=== PATIENT | female | born 1960 | race Caucasian/White ===

== ENCOUNTER → 2017-10-05 13:28 | Outpatient (CLI) | payer OTHER, SELFPAY ==
[2017-10-05 14:34] LABS: Amphetamine Urine VISTA NEGATIVE (<1000 ng/mL); Barbiturate Urine VISTA NEGATIVE (< 200 ng/mL); Benzodiazepine Urine VISTA NEGATIVE (< 200 ng/mL); Cocaine Urine VISTA NEGATIVE (< 300 ng/mL); Ecstacy Urine VISTA NEGATIVE (< 500 ng/mL); Methadone Urine VISTA NEGATIVE (< 300 ng/mL); PCP Urine VISTA NEGATIVE (< 25 ng/mL); THC Urine VISTA NEGATIVE (< 50 ng/mL); Vista UDS pH Range 7
== END ==
PROVIDERS: Family Provider Family Medicine; PCP Family Medicine; Visit Provider Anesthesiology Pain Medicine
DX: F11.20 Opioid dependence, uncomplicated (principal)
CPT/HCPCS: 80307

== ENCOUNTER → 2018-04-18 14:27 | Outpatient (CLI) | payer OTHER, SELFPAY ==
--- NOTE | 2018-04-18 14:35 | RAD_ITS ---
HISTORY: NECK PAIN COMPARISON: 09/28/2015 FINDINGS: XR Spine Cervical 3 Views: Mild straightening of the lower cervical spine. Cervical vertebral normal in height. No fracture or acute disease. C5-6 mild disc space narrowing accompanied by anterior endplate spurring. The posterior elements appear intact. No spondylolisthesis. C3-4 hypertrophic facet joint arthritis on the right. The C1-C2 relationship appears normal. RAD/Cerv Spine 2 or 3 Views IMPRESSION: 1. No fracture or acute osseous abnormality. 2. C5-6 degenerative disc disease and spondylosis and mid cervical facet joint arthritis. at 0119 Reported and signed by: Nathan Dickerson MD Electronically Signed: Nathan Dickerson, at 1:18 EST Tel , Service support ,
== END ==
PROVIDERS: Family Provider Family Medicine; PCP Family Medicine; Referring Provider Anesthesiology Pain Medicine; Visit Provider Anesthesiology Pain Medicine
DX: M54.2 Cervicalgia (principal)
CPT/HCPCS: 72040

== ENCOUNTER 2019-03-01 08:08 | Outpatient (RCR) | payer OTHER, SELFPAY ==
--- NOTE | 2019-03-01 11:46 | HP.OTFCE.D ---
FCE D/C Summary - Discharge DARIAN FONSECA was seen for a one time visit for an FCE on 03/01/19 and is discharged.
--- NOTE | 2019-03-01 11:46 | HP.FCE ---
HP OT Functional Capacity Eval Date of Evaluation: 03/01/19 - Task Lift Floor (Occasional 1-33% of Day): 35 lbs Floor (Frequent 34-66% of Day): 20 lbs Floor (Constant 67-100% of Day): 8 lbs Floor PDL: Light-Medium Knee (Occasional 1-33% of Day): 30 lbs Knee (Frequent 34-66% of Day): 20 lbs Knee (Constant 67-100% of Day): 8 lbs Knee PDL: Light-Medium Waist (Occasional 1-33% of Day): 25 lbs Waist (Frequent 34-66% of Day): 15 lbs Waist (Constant 67-100% of Day): negligible Waist PDL: Light Shoulder (Occasional 1-33% of Day): 25 lbs Shoulder (Frequent 34-66% of Day): 15 lbs Shoulder (Constant 67-100% of Day): negligible Shoulder PDL: Light Overhead (Occasional 1-33% of Day): 25 lbs Overhead (Frequent 34-66% of Day): 15 lbs Overhead (Constant 67-100% of Day): negligible Overhead PDL: Light Comments: Carrying: Occasional Liftinx 30 lbs. Frequent liftinx 15 lbs. - light - Work Activity/Posture Bending: Frequent Ability (34-66% of day) Squatting: Frequent Ability (34-66% of day) Kneeling: Occasional Ability (1-33% of day) Reaching out: Frequent Ability (34-66% of day) Reaching up: Occasional Ability (1-33% of day) Comments: inconsistencies noted. Sitting: Frequent Ability (34-66% of day) Walking: Frequent Ability (34-66% of day) Standing: Frequent Ability (34-66% of day) - Reference Duration Sedentary Sedentary Light Light Light Medium Medium Medium Heavy Very Heavy Heavy Occasional (0-33% of day) Frequent (34-66% of day) Constant (67-100% of day) 10 # Negligible Negligible 15 # 8 # Negligible 20 # 10# Negli. 35 # 18 # 7 # 50 # 25 # 10 # 75 # 100 # >100 # 38 # 50 # >50 # 15 # 20 # >20 # - Patient Information Height: 1.52 m Weight:: 54.431 kg Hand Dominance: Right BP (Medication Use/Usual Values per pt report): Yes - Medical History Medical History Including Restrictions: No medical restrictions provided by patient or doctor. - Diagnoses Diagnoses: Past medical history: fibromyalgia, C5-6 degenerative disc and spondylosis with mild cervical facet joint arthritis, rheumatoid arthritis, reflux, hypertension, and anxiety. Current: She has fall in 04/18/18 with no fracture but need to complete cervical spine x-rays and has been having increased symptoms of fibromyalgia which is affecting her job performance. Lisset forgot medication list. Due to her records being at [facility] therapist did not have access to review pain medications and general medications she is taking. - Symptoms Symptoms: Lisset noted increased symptoms of fatigue, achiness, and general pain throughout her body. She noted left lower extremity pain and cervical spine pain. - Pain Pain: Lisset noted she has constant discomfort and pain throughout her days. She was asked to refrain from additional pain medications than what was typical. She noted she took only the typical prescribed medication that she is to take prior to going to work. Amberly Pain Questionnaire is a self-report pain assessment to determine a patient?s accurate psychodynamics for accurate pain rating. A score of 30 or high indicates poor psychodynamics and the greater probability of decreased accuracy with accurate pain reporting. Pre- Amberly: 25. Post Amberly: 17. Fear Avoidance Questionnaire (FAQ) is a client self-report assessment for 18-64+ that has shown to be reliable and valid for determining increased fear with movements. A score of 96 or higher indicates increased fear avoidance behaviors. FAQ : 64. -Fear avoidance belief about work (items 6,7,9,10,11,12,15): 28. -Fear avoidance belief about physical activity (items 2,3,4,5):15. Oswestry Neck questionnaire is a self-report assessment in which patients report their perceived level of disability based on their perceived pain. 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 She is currently on medical leave due to inability to keep up with thejob demands. She noted frequent standing, walking, lifting, and general movement to complete her job - Behavioral Behavioral: Arrived 15 mins late to session. When asked noted I feel horrible. I hate this not working. I think I'm getting freaking depressed.. In general, Lisset was participative in all tasks asked of her. She verbalized frustration but pain did not increase with tasks. - ADLS ADLS: Lisset lives in house with first floor set up. She has three steps to enter back door with no handrail. She is independent in all self-care tasks and is completing laundry that is located in the basement of home. She has full 10-12 step staircase to access basement. 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 She noted that she is able to complete grocery shopping and carry and put groceries away. She further indicated she must pace herself but can complete yardwork. - Physical Examination Physical Examination: The purpose of this functional capacity evaluation (FCE) was to determine Lisset?s physical ability. This FCE was performed in order to melt helper in the determination of her physical ability. Aerobic limiting factor: 85% of max adjust HR= (220-age) *.85= 139 bpm. Calculated max weight: 60% of weight= 72 lbs. Beginning Diagnostics: -Blood pressure: 122/78. -Heart rate: 77 bpm. -Oxygen saturation at room air: 98% ROM: Range of motion: Cervical Spine: Goniometer: - flexion: 0-51. - extension: 0-28. - lateral flexion: R 0-34, L 0-32. - Rotation: R 0-47 , L 0-43. Joint of hands show ulnar drift indicative of rheumatoid arthritis. She has increased stiffness of right shoulder with forward and overhead movements, but the severity of this stiffness is not always consistent. Overhead movements seem to elicit more pain behaviors of limited range of motion. Strength: Strength measurements completed with use of manual muscle testing and short arm access of dynamometer. Results are as follows: Upper Body: Shoulder flexion: -Dynamometer: R 5 , L 8.6. Shoulder extension: -Dynamometer: R 10 , L 9.8. Shoulder abduction: -Dynamometer: R 3.6 , L 6.1. Shoulder Internal Rotation: -Dynamometer: R 14.4 , L 11.6. Shoulder External Rotation: -Dynamometer: R 7.7 , L 8.0. Elbow flexion: -Dynamometer: R 15.4 , L 17.4. Elbow extension: -Dynamometer: R 11.2 , L 13.0. Lower Body: Hip flexion: -Dynamometer: R 22.8 , L 19.4. Hip adduction: -Dynamometer: R 22.6 , L 14.23 lbs. Hip abduction: -Dynamometer: R 13.7 , L 15.9 lbs. Knee Flexion: -Dynamometer: R 25.0 , L 20.1. Knee extension: -Dynamometer: R 14.6 , L 20.0. Plantarflexion: -Dynamometer: R 27.2 , L 28.7. Completed testing at distal locations with use of hand-held dynamometer. Increased inconsistencies noted with patient not resisting therapist but could assume and hold position. Minimal effort was displayed at times as she would assume but not hold test position and when light touch provided would break position. Right [employer] Strength Average: 36.33 Right [employer] Strength Percentile: 60th Left [employer] Strength Average: 31.66 Left [employer] Strength Percentile: 53 th Right Lateral Pinch Average: 10.00 Right Lateral Pinch Percentile: 25th Left Lateral Pinch Average: 11.66 Left Lateral Pinch Percentile: 50th Right Tripod Pinch Average: 8.00 Right Tripod Pinch Percentile: above 10th and below 25th Left Tripod Pinch Average: 7.66 Left Tripod Pinch Percentile: above 10th and below 25th Comments: Five Span [employer] testing on Dynamometer: Position 1: R 28 , L 21. Position 2: R 33 , L 28. Position 3: R 36 , L 33. Position 4: R 33 , L 30. Position 5: R 20 , L 25. A coefficient of variation greater than 15 % indicated decreased consistency of effort. Coefficient of variation: R 20%, L 16%. Consistency of Effort: inconsistent Sensation: Sensation testing completed on bilateral feet with monofilament touch test. A score of normal on touch test is 2.83 and within normal range with just some discrepancies for light touch is between 3.22-3.61. The higher the number in more complications related to patient?s ability to perceive touch related sensory stimuli. R hand: Thumb 3.22 ,2nd 3.22 , 3rd 2.83 , 4th 2.83 , 5th 2.83. L hand: Thumb 3.22-bandaid ,2nd 2.83 , 3rd 2.83 , 4th 2.83 , 5th 2.83 Fine Motor: Completed the Purdue Pegboard test to further determine the patient?s ability to complete 2-3 step tasks, assess fine motor control and general dexterity needed to complete assembly like work. The results are as follows: Right Hand: 10. -Percentile: below 1st. Left Hand: 10. -Percentile: below 1st. Both Hands: 8. - percentile: below 1st. R+ L+ Both: 28. -percentile: below 1st. Assembly: 3. -percentile: below 1st. Table set at 33 inches from floor height. Able to stand to complete tasks. Balance: Functional reach test is used to determine static balance in patients. A score of 15 is normal and less than 10 increases risk of falling. A score of 6 or less significantly increases a patient?s risk of falling. [place] 1: 9.5. [place] 2: 10. [place] 3: 10. Average: 10. Inconsistencies noted. She was able to complete adequent range of motion of right upper extremity for range of motion testing and strength testing but with additional suppor tof wall for functional reach was unable to complete. Needed about three deomstrations and still had increased difficulty motor planning. Increased inconsistentcies observed. Functional Gait Assessment (FGA) is a dynamic balance test to determine vestibular functioning and general dynamic balance ability of patient 18-65+. This assessment can be used with clients of various backgrounds to determine functional dynamic balance needed to complete every day work related tasks. 1.Gait Level Surface:2. 2.Change in Gait Speed: 3. 3.Gait with horizontal head turns:2. 4.Gait with vertical head turns:3. 5.Gait and pivot turn:3. 6.Step over obstacle:2. 7.Gait with narrow base of support: 2. 8.Gait with eyes closed: 1. 9.Ambulating Backwards: 2. 10.Steps: 3. Total Score: 23 /maximum score 30. Scored about two standard deviation below mean performance of age related peers on test. - Non Material Handling Activities Bending: Heart rate prior to beginning with use of pulse oximeter: 68 bpm. 3x, 10x in 37 seconds, and 10x faster in 30. 42 s seconds. Completed with full range of motion and equal weightbearing into bilateral lower extremity. No pain behaviors of grimace noted but completed at slower speed for task. Completed with fair body mechanics. Increase in heart rate indicative of exertion and not pain as pain maintained at 4/10. Heart rate posttest with use of pulse oximeter: 76 bpm. Perceived pain:4/10 Squatting: Heart rate prior to beginning with use of pulse oximeter: 79 bpm. 3x, 10x in 18.31 s seconds, and 10x faster in 17 seconds. Completed with good mechanics. Completed with equal weightbearing into bilateral lower extremities. Able to complete 75% of full squat for trials. Tolerated tasks well but mild increase in speed observed. Increase in heart rate observed and indicative of increase in exertion but not pain. Pain maintained at 4/10. Heart rate posttest with use of pulse oximeter: 86 bpm. Perceived pain: 4/10 Kneeling: Heart rate prior to beginning with use of pulse oximeter: 80 bpm. 3x, 10x in 27 seconds, and 10x faster in 26 seconds. Completed fair body mechanics. Increased mechanical compensation of lateral leaning to left side to move from kneel to upright. Completed with 50% of ability to complete full kneel. Increased grimace noted. Increase in heart rate indicated of exertion but not increase of pain. Pain maintained at 4/10. Heart rate posttest with use of pulse oximeter: 89 bpm. Perceived pain: 4/10 Reaching out/up: Heart rate prior to beginning with use of pulse oximeter: 80 bpm. 3x, 10x in 15 seconds, and 10x faster in 8 seconds. Completed with equal reaching of bilateral upper extremities to promote forward reaching. Completed with adequate range of motion to complete tasks. Heart rate posttest with use of pulse oximeter: 86 bpm. Perceived pain: 4/10. Heart rate prior to beginning with use of pulse oximeter: 75 bpm. 3x, 10x in 17.20 seconds, and 10x faster in 17.25 seconds. Decreased range of motion noted in right upper extremity for initial movement. Completed with good mechanics but decreased range of motion. Range of motion of right shoulder improved as task progressed. Heart rate posttest with use of pulse oximeter: 77 bpm. Perceived pain: 4/10 Walking: Heart rate prior to beginning with use of pulse oximeter: 77 bpm. Completed walking 15 mins on flat open surface around gym and majority of time in hallway for 3,916 feet of .75 a mile. She completed walking hallways 27x for 108 feet with turn at each end of 108 feet and then additional 1000 feet in clinic. She completed functional mobility with mild antalgic gait to left side. No assistive device. Heart rate posttest with use of pulse oximeter: 82 bpm. Perceived pain: 4/10 Standing: Completed standing with static and dynamic tasks for 76 minutes during assessment tasks. Weight shift completed as needed. Able to complete frequent standing. Sitting: Completed static and dynamic sitting tasks for 30 minutes. Climbing Stairs: Heart rate prior to beginning with use of pulse oximeter: 58 bpm. Completed one flight of ten stairs with alternating foot pattern and no use of handrail. Completed with mild antalgic gait to left lower extremity. Heart rate posttest with use of pulse oximeter: 71 bpm. Perceived pain: 4/10 - Dynamic Occasional Lifting Capacity Floor Lift: Heart rate prior to beginning with use of pulse oximeter: 77 bpm. Maximum weight: 1x 45 lbs. Occasional Liftinx 35 lbs. Frequent liftinx 20 lbs. Completed fair body mechanics. Decreased spinal alignment observed with task but able to complete with very mild compensations. Increase in heart rate noted but no increase in pain report. Mild pain behaviors of holding breath. Heart rate posttest with use of pulse oximeter: 101 bpm. Perceived pain: 4/10 Knee Lift: Heart rate prior to beginning with use of pulse oximeter: 81 bpm. Maximum weight: 1x 40 lbs. Occasional Liftinx 30 lbs. Frequent liftinx 20 lbs. Completed with fair body mechanics. Some inconsistencies as with increased elevation of box no increase in weight was able to be added. Demonstrated fair lifting mechanics. Slight increase in heart rate from exertion no pain. Pain consistently rated at 4/10 pain. Heart rate posttest with use of pulse oximeter: 87 bpm. Perceived pain: 4/10 Waist Lift: Heart rate prior to beginning with use of pulse oximeter: 75 bpm. Maximum weight: 1x 35 lbs. Occasional Liftinx 25 lbs. Frequent liftinx 15 lbs. Completed with fair- poor mechanics. Increase body mechanics with decreased weight. Increased compensations of looking up. Some pain behaviors noted with increased gaze of eyes upward and holding breath. No grimace noted. Heart rate posttest with use of pulse oximeter: 86 bpm. Perceived pain: 4/10 Shoulder Lift: Heart rate prior to beginning with use of pulse oximeter: 83 bpm. Maximum weight: 1x 30 lbs. Occasional Liftinx 25 lbs. Frequent liftinx 15 lbs. Completed with fair body mechanics but increased compensations observed. Increased mechanical changes with decreased spinal alignment to complete tasks. No increase in heart rate observed or increase in pain behaviors. Heart rate posttest with use of pulse oximeter: 51 bpm. Perceived pain: 4/10 Overhead Lift: Perceived pain: 4/10 Heart rate prior to beginning with use of pulse oximeter:87 bpm. Maximum weight: 1x 30 lbs. Occasional Liftinx 25 lbs. Frequent liftinx 15 lbs. Completed with fair mechanics. No grimace noted but compensatory movements observed with increased trunk flexion and sliding of box. Increase in heart rate observed. Pain reported decreased. Heart rate posttest with use of pulse oximeter: 103 bpm. Perceived pain: 3/10 Carrying: Heart rate prior to beginning with use of pulse oximeter: 77 bpm. Maximum weight: 1x 35 lbs. Occasional Liftinx 30 lbs. Frequent liftinx 15 lbs. Completed with fair body mechanics. Increased compensations noted through increased shoulder elevation with all weight. Light weight also exhibited shoulder elevation so mechanical compensations with task. No increase in pain behaviors observed but some frowning as task progressed. Increase in heart rate observed but due to exertion as pain did not increase. Heart rate posttest with use of pulse oximeter: 90 bpm. Perceived pain: 3/10 Comments: Ending diagnostics: -Blood pressure: 124/81 mmHg. -Heart rate: 74 bpm. -Oxygen saturation at room air: 96%
== END 2019-03-01 19:00 | disposition home or self-care (01) ==
LOC: OT 08:08
PROVIDERS: Family Provider Family Medicine; PCP Family Medicine; Referring Provider Anesthesiology Pain Medicine; Visit Provider Anesthesiology Pain Medicine
DX: M54.9 Dorsalgia, unspecified (principal)
CPT/HCPCS: 97750

== ENCOUNTER 2019-03-02 12:27 | Emergency (ER) | payer OTHER, SELFPAY ==
[2019-03-02 12:28] VITALS: BP 158/110; PULSE 102; RESP 16; TEMP 36.4; O2SAT 100; BMI 23.4
--- NOTE | 2019-03-02 12:57 | ED.VISSUMM ---
- ER Visit Summary Date of Service: 03/02/19 Chief Complaint: Bilateral shoulder pain History of Present Illness: The patient is a 58 F who presents with bilateral shoulder pain that has been constant for the past 2 months. Patient describes the pain as aching and burning. Patient states she has a history of fibromyalgia and states this feels similar to prior flareups of her fibromyalgia. Patient denies any trauma or injury. Patient states nothing makes her pain better or worse. Physical Examination: Vital signs are stable. Patient is afebrile. Patient is in no acute distress. Musculoskeletal exam reveals mild tenderness over the posterior shoulders and trapezius muscles bilaterally. There is no bony crepitance or step-off. Range of motion was slightly limited in all motions of the shoulders bilaterally secondary to pain. Strength is 5/5 bilaterally upper and lower extremities. There are no sensory deficits noted. There are no deformities noted. Emergency Department Course and Treatment: Patient was given injection of Toradol here. Patient was instructed to follow-up with her primary care physician in 5 to 7 days. Patient was given a prescription for a short course of gabapentin. Patient understood and was agreeable with the plan. All questions were answered. Disposition: Discharge home Impression: Fibromyalgia This note was generated with [employer] dictation software. It may contain incorrect words, spelling, and punctuation that were not noted in review of the chart prior to signing ED Disposition - Plan for ED Patient: Disposition: Home or Assisted Living Diagnosis: Fibromyalgia Instructions: ED Chronic Pain, Fibromyalgia Prescriptions: Gabapentin [Neurontin] 300 mg PO BID #10 cap Prescription Printed Referrals: Noe Andrade MD [Primary Care Provider] - Keep Janki appointment
[2019-03-02 13:08] VITALS: RESP 16
[2019-03-02] MEDS: Ketorolac 60 MG/2 ML Vial IM (13:14)
[2019-03-02 13:35] VITALS: BP 152/90; PULSE 84; RESP 16; O2SAT 99
== END 2019-03-02 13:36 | disposition home or self-care (01) ==
LOC: ED 13:09
PROVIDERS: Emergency Provider Emergency Medicine; Family Provider Family Medicine; PCP Family Medicine
DX: M79.7 Fibromyalgia (principal); M06.9 Rheumatoid arthritis, unspecified; M47.812 Spondylosis without myelopathy or radiculopathy, cervical region; Z79.899 Other long term (current) drug therapy
CPT/HCPCS: 96372; 99282

== ENCOUNTER → 2019-08-12 16:41 | Outpatient (CLI) | payer OTHER, SELFPAY ==
[2019-08-12 18:39] LABS: Amphetamine Urine VISTA NEGATIVE (<1000 ng/mL); Barbiturate Urine VISTA NEGATIVE (< 200 ng/mL); Benzodiazepine Urine VISTA NEGATIVE (< 200 ng/mL); Cocaine Urine VISTA POSITIVE (< 300 ng/mL); Ecstacy Urine VISTA NEGATIVE (< 500 ng/mL); Methadone Urine VISTA NEGATIVE (< 300 ng/mL); PCP Urine VISTA NEGATIVE (< 25 ng/mL); THC Urine VISTA NEGATIVE (< 50 ng/mL); Vista UDS pH Range 5
== END ==
PROVIDERS: PCP Family Medicine; Referring Provider Anesthesiology Pain Medicine; Visit Provider Anesthesiology Pain Medicine
DX: F11.20 Opioid dependence, uncomplicated (principal)
CPT/HCPCS: 80307

== ENCOUNTER 2022-01-10 11:46 | Outpatient (CLI) | payer MEDICARE, OTHER, MEDICAID, SELFPAY ==
[2022-01-10 16:02] LABS: Rheumatoid Factor < 10.0 IU/mL (<15)
[2022-01-12 14:09] LABS: Anti-Centromere B Ab <0.2 AI (0.0-0.9); Anti-Chromatin <0.2 AI (0.0-0.9); Anti-Jo <0.2 AI (0.0-0.9); Anti-Scleroderma-70 AB 0.2 AI (0.0-0.9); RNP Ab <0.2 AI (0.0-0.9); SJOGREN'S Anti-SS-A test < 0.2 AI (0.0-0.9); SJOGREN'S Anti-SS-B test < 0.2 AI (0.0-0.9); Smith Ab <0.2 AI (0.0-0.9)
[2022-01-12 16:26] LABS: Anti-dsDNA Ab <1 IU/mL (0-9)
[2022-01-15 20:55] LABS: CCP IgG Antibodies 5 units (0-19)
== END 2022-01-10 23:59 | disposition home or self-care (01) ==
LOC: BIMLAB 11:48
PROVIDERS: PCP Internal Medicine; Referring Provider Internal Medicine; Visit Provider Internal Medicine
DX: G89.29 Other chronic pain (principal); M25.511 Pain in right shoulder; M25.512 Pain in left shoulder
CPT/HCPCS: 36415; 86200; 86225; 86235; 86431

== ENCOUNTER 2022-01-27 09:00 | Outpatient (RCR) | payer MEDICARE, OTHER, MEDICAID, SELFPAY | END 2022-02-09 23:59 | LOC: DC 09:00 | PROVIDERS: PCP Internal Medicine; Visit Provider Internal Medicine | DX: E11.9 Type 2 diabetes mellitus without complications (principal) | CPT/HCPCS: 97802; G0108 ==

== ENCOUNTER → 2022-02-19 | Outpatient (CLI) | payer MEDICARE, OTHER, MEDICAID, SELFPAY ==
--- NOTE | 2022-02-19 08:01 | MRI_ITS ---
STUDY: MRI RIGHT SHOULDER REASON FOR EXAM: Female, 61 years old. RIGHT shoulder failed conservative management, rule out cuff tear TECHNIQUE: Standardized fat and water weighted pulse sequences were obtained in all 3 orthogonal planes. COMPARISON: X-ray of the right shoulder dated January 10, 2022 FINDINGS: Large full-thickness tears of the supra spinatus and infraspinatus tendons are present resulting and a high riding humeral head nearly abutting the undersurface of the acromium. The supraspinatus tendon is retracted 4 cm proximal to the greater tuberosity. There is also high-grade tendinosis and mild partial tearing of the superior fibers of the subscapularis tendon. Normal infraspinatus tendon. Normal subscapularis tendon. Normal teres minor tendon. There is moderate muscular atrophy of the supraspinatus muscle. There is moderate muscular atrophy of the infraspinatus muscle. Normal subscapularis muscle. Normal teres minor muscle. A large lobular intraosseous cyst is present in the lateral aspect of the humeral head and within the greater tuberosity. A small glenohumeral joint effusion is present. Normal biceps labral complex. There is moderate tendinosis with thinning of the biceps tendon, but without a demonstrated tendon tear. There is labral degeneration with blunting of the anterior aspect of the labrum, but there is no demonstrated discrete labral tear. Normal capsulo- ligamentous complex. Normal rotator interval. There is mild osteoarthritis of the acromioclavicular articulation. There is a Type II morphology (curved), with a neutral orientation. There is no subacromial-subdeltoid bursal fluid. Normal visualized coracohumeral and coracoacromial ligaments. Normal quadrilateral space. Normal axillary space. Normal deltoid muscle. Normal trapezius muscle. MRI/Upper Ext Joint Only(Routine) IMPRESSION: 1. Large full-thickness tears of the supraspinatus and infraspinatus tendons with a high riding humeral head 2. High-grade tendinosis and mild partial tearing of the subscapularis tendon 3. Moderate tendinosis of the intracapsular aspect of the long head of biceps tendon. 4. Small glenohumeral joint effusion Electronically Signed: Diego Chavira MD at 12:32 EST ,
--- NOTE | 2022-02-19 08:01 | MRI_ITS ---
STUDY: MRI LEFT SHOULDER REASON FOR EXAM: Female, 61 years old. LEFT shoulder- failed conservative management, rule out cuff tear TECHNIQUE: Standardized fat and water weighted pulse sequences were obtained in all 3 orthogonal planes. COMPARISON: X-ray of the right shoulder dated January 10, 2022 FINDINGS: A large full-thickness tear the supraspinatus tendon is present with retraction of the tendon 3.94 cm proximal to the greater tuberosity. There is also partial tearing of the infraspinatus tendon at its insertion site/supraspinatus junction. The humeral head is high riding nearly abutting the undersurface of the acromium. A moderate size joint effusion is also present. Mild synovial perforation is also present in the proximal aspect of the joint space. Normal subscapularis tendon. Normal teres minor tendon. There is moderate muscular atrophy of the supraspinatus muscle. There is mild muscular atrophy of the infraspinatus muscle. Normal subscapularis muscle. Normal teres minor muscle. Moderate subchondral cystic changes are present in the glenoid. Normal humeral head and visualized proximal humerus. Normal biceps labral complex. Normal intracapsular long biceps tendon. Normal labrum. Normal capsulo- ligamentous complex. Normal rotator interval. There is mild osteoarthritis of the acromioclavicular articulation. There is a Type II morphology (curved), with a neutral orientation. There is fluid distention of the subacromial-subdeltoid bursa, which communicates with the glenohumeral joint, through a rotator cuff tear. Normal visualized coracohumeral and coracoacromial ligaments. Normal quadrilateral space. Normal axillary space. Normal deltoid muscle. Normal trapezius muscle. MRI/Upper Ext Joint Only(Routine) IMPRESSION: 1. A large full-thickness tear the supraspinatus tendon is present with retraction of the tendon 3.94 cm proximal to the greater tuberosity. There is also partial tearing of the infraspinatus tendon at its insertion site/supraspinatus junction. The humeral head is high riding nearly abutting the undersurface of the acromium. 2. A moderate size joint effusion is also present. Mild synovial perforation is also present in the proximal aspect of the joint space. Electronically Signed: Diego Chavira MD at 12:23 EST ,
== END | disposition home or self-care (01) ==
LOC: MRI 08:01
PROVIDERS: PCP Internal Medicine; Referring Provider Orthopaedic Surgery Sports Medicine; Visit Provider Orthopaedic Surgery Sports Medicine
DX: M75.42 Impingement syndrome of left shoulder (principal); M75.41 Impingement syndrome of right shoulder
CPT/HCPCS: 73221

== ENCOUNTER → 2022-03-16 | Outpatient (CLI) | payer MEDICARE, OTHER, MEDICAID, SELFPAY ==
[2022-03-16 12:58] LABS: Absolute Lymphocyte Count 2.28 X10^3/uL (0.83-4.51); Absolute Neutrophil Count 4.3 X10^3/uL (2.0-7.7); Basophil# 0.05 X10^3/uL; Basophil% 0.7 % (0-1); Eosinophil# 0.26 X10^3/uL; Eosinophils% 3.5 % (0-5); Hematocrit 39.9 % (37-47); Hemoglobin 12.6 g/dL (12.0-15.0); Lymphocyte # 2.28 X10^3/ul (0.83-4.51); Lymphocyte % 30.9 % (19-41); Mean Corp Hgb Conc 31.6 g/dL (32-36); Mean Corpuscular Hgb 29.8 pg (27.0-32.0); Mean Corpuscular Volume 94.3 fL (81-99); Mean Platelet Vol. 10.1 fl (6.2-12.0); Monocyte# 0.44 X10^3/uL; NRBC Flagged by Analyzer 0 % (0-5); Neutrophil # 4.34 X10^3/uL (2.7-7.7); Neutrophil % 58.6 % (47-70); Platelet Count 363 K/mm3 (150-450); RBC Distribution Width CV 13.5 % (11.6-14.6); RBC Distribution Width SD 46.7 fl (35.1-43.9); Red Blood Count 4.23 M/mm3 (4.2-5.4); White Blood Count 7.4 K/mm3 (4.4-11.0)
[2022-03-16 13:06] LABS: Hemoglobin A1c 6.1 % (3.8-5.6)
[2022-03-16 13:29] LABS: ALB/GLOB Ratio 1.5 RATIO (0.9-2.4); AST(SGOT) 18 U/L (15-37); Alanine Aminotransfer ALT/SGPT 34 U/L (13-56); Albumin, Serum 4.1 g/dL (3.2-5.0); Alkaline Phosphatase 65 U/L (45-117); Anion Gap 4 (5-15); BUN 8 mg/dL (7-18); BUN/Creat Ratio 11.8 RATIO (10-20); Calcium,Total 9.7 mg/dL (8.5-10.1); Chloride 103 mmol/L (98-107); Cholesterol 154 mg/dL (200); Creatinine, Serum 0.68 mg/dL (0.55-1.02); EST Glomerular Filtration Rate 95 mL/min (>60); Est Glom Filt Rate - Afr Amer 114 mL/min (>60); Globulin 2.8 g/dL (2.2-4.2); Glucose 107 mg/dL (74-106); High Density Lipoprotein 51 mg/dL; Potassium 4.7 mmol/L (3.5-5.1); Protein, Total 6.9 g/dL (6.4-8.2); Sodium Level 138 mmol/L (136-145); Thyroid Stim Hormone (TSH) 0.63 uIU/mL (0.358-3.74); Triglycerides 121 mg/dL; Very Low Density Lipoprotein 24 mg/dL (5-40)
== END | disposition home or self-care (01) ==
LOC: BIMLAB 09:51
PROVIDERS: PCP Internal Medicine; Referring Provider Internal Medicine; Visit Provider Internal Medicine
DX: E11.9 Type 2 diabetes mellitus without complications (principal); I10 Essential (primary) hypertension
CPT/HCPCS: 36415; 80053; 80061; 83036; 84443; 85025

== ENCOUNTER 2022-04-12 09:00 | Outpatient (RCR) | payer MEDICARE, OTHER, MEDICAID, SELFPAY | END 2022-04-12 23:59 | LOC: DC 09:00 | PROVIDERS: PCP Internal Medicine; Visit Provider Internal Medicine | DX: E11.9 Type 2 diabetes mellitus without complications (principal) | CPT/HCPCS: 97803; G0108 ==

== ENCOUNTER → 2023-03-28 | Outpatient (CLI) | payer MEDICARE, OTHER, SELFPAY ==
[2023-03-28 12:24] LABS: Absolute Lymphocyte Count 2.24 X10^3/uL (0.83-4.51); Absolute Neutrophil Count 2.7 X10^3/uL (2.0-7.7); Basophil# 0.03 X10^3/uL; Basophil% 0.5 % (0-1); Eosinophils% 3.6 % (0-5); Hematocrit 41.4 % (37-47); Hemoglobin 13.2 g/dL (12.0-15.0); Lymphocyte # 2.24 X10^3/ul (0.83-4.51); Lymphocyte % 40.4 % (19-41); Mean Corp Hgb Conc 31.9 g/dL (32-36); Mean Corpuscular Hgb 29.7 pg (27.0-32.0); Mean Corpuscular Volume 93.2 fL (81-99); Mean Platelet Vol. 10.3 fl (6.2-12.0); Monocyte# 0.37 X10^3/uL; Monocyte% 6.7 % (0-10); NRBC Flagged by Analyzer 0 % (0-5); Neutrophil % 48.6 % (47-70); Platelet Count 325 K/mm3 (150-450); RBC Distribution Width CV 13.7 % (11.6-14.6); RBC Distribution Width SD 46.8 fl (35.1-43.9); Red Blood Count 4.44 M/mm3 (4.2-5.4); White Blood Count 5.6 K/mm3 (4.4-11.0)
[2023-03-28 13:01] LABS: ALB/GLOB Ratio 1.2 RATIO (0.9-2.4); AST(SGOT) 17 U/L (15-37); Alanine Aminotransfer ALT/SGPT 24 U/L (13-56); Albumin, Serum 4.1 g/dL (3.2-5.0); Alkaline Phosphatase 73 U/L (45-117); Anion Gap 6 (5-15); BUN 6 mg/dL (7-18); BUN/Creat Ratio 8.3 RATIO (10-20); Calcium,Total 9.4 mg/dL (8.5-10.1); Chloride 106 mmol/L (98-107); Cholesterol 175 mg/dL (200); Creatinine, Serum 0.72 mg/dL (0.55-1.02); EST Glomerular Filtration Rate 87 mL/min (>60); Est Glom Filt Rate - Afr Amer 106 mL/min (>60); Globulin 3.4 g/dL (2.2-4.2); Glucose 107 mg/dL (74-106); High Density Lipoprotein 69 mg/dL; Potassium 3.8 mmol/L (3.5-5.1); Protein, Total 7.5 g/dL (6.4-8.2); Sodium Level 138 mmol/L (136-145); Triglycerides 123 mg/dL; Very Low Density Lipoprotein 25 mg/dL (5-40)
== END | disposition home or self-care (01) ==
PROVIDERS: PCP Internal Medicine; Referring Provider Internal Medicine; Visit Provider Internal Medicine
DX: I10 Essential (primary) hypertension (principal); F41.9 Anxiety disorder, unspecified; F32.A Depression, unspecified
CPT/HCPCS: 36415; 80053; 80061; 85025

== ENCOUNTER → 2023-09-28 | Outpatient (CLI) | payer OTHER, SELFPAY ==
[2023-09-28 17:06] LABS: ALB/GLOB Ratio 1.1 RATIO (0.9-2.4); AST(SGOT) 28 U/L (15-37); Alanine Aminotransfer ALT/SGPT 27 U/L (13-56); Albumin, Serum 3.9 g/dL (3.2-5.0); Alkaline Phosphatase 75 U/L (45-117); Anion Gap 7 (5-15); BUN 11 mg/dL (7-18); BUN/Creat Ratio 13.9 RATIO (10-20); Calcium,Total 9.5 mg/dL (8.5-10.1); Chloride 102 mmol/L (98-107); Creatinine, Serum 0.79 mg/dL (0.55-1.02); EST Glomerular Filtration Rate 79 mL/min (>60); Est Glom Filt Rate - Afr Amer 95 mL/min (>60); Globulin 3.7 g/dL (2.2-4.2); Glucose 112 mg/dL (74-106); Potassium 4.5 mmol/L (3.5-5.1); Protein, Total 7.6 g/dL (6.4-8.2); Sodium Level 138 mmol/L (136-145)
== END | disposition home or self-care (01) ==
LOC: BIMLAB 14:20
PROVIDERS: PCP Internal Medicine; Referring Provider Internal Medicine; Visit Provider Internal Medicine
DX: I10 Essential (primary) hypertension (principal); E78.5 Hyperlipidemia, unspecified
CPT/HCPCS: 36415; 80053

== ENCOUNTER → 2023-11-14 | Outpatient (CLI) | payer MEDICARE, OTHER, SELFPAY ==
--- NOTE | 2023-11-14 14:09 | CT_ITS ---
HISTORY: Lung cancer screening -- 60 pk yr hx;former smoker;asymptomatic. TECHNIQUE: Helically acquired images were obtained of the chest without contrast. A radiation dose optimization technique was used for this scan. 799 images. COMPARISON: None. FINDINGS: LARGE AIRWAYS: Patent. LUNGS: Mild linear atelectasis in the lingula and right middle lobe. No suspicious nodule identified. PLEURA: No pneumothorax or significant pleural effusion. HEART/PERICARDIUM: Heart within normal limits in size with coronary artery calcification. Trace pericardial effusion. VESSELS: Thoracic aorta nondilated. Mild atherosclerosis. MEDIASTINUM/ROSEANN: No pathologically enlarged adenopathy. UPPER ABDOMEN: Colonic diverticulosis observed. 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 Chronic mild T12 compression fracture. Degenerative change. CT/Low Dose CT Lung Screening IMPRESSION: Lung-RADS category 1: Continue annual screening with low dose CT. Electronically Signed: Stephanie Farias MD at 15:29 EDT ,
== END | disposition home or self-care (01) ==
LOC: CT 14:05
PROVIDERS: PCP Internal Medicine; Referring Provider Nurse Practitioner Family; Visit Provider Nurse Practitioner Family
DX: Z12.2 Encounter for screening for malignant neoplasm of respiratory organs (principal); Z87.891 Personal history of nicotine dependence
CPT/HCPCS: 71271

== ENCOUNTER → 2024-04-18 | Outpatient (CLI) | payer MEDICARE, SELFPAY ==
[2024-04-18 12:14] LABS: Mucous, Urine 0 SEEN /hpf (<or=2+); Squamous Epithelial Cells - UA 0 SEEN /hpf (5-10)
[2024-04-18 15:28] LABS: Absolute Lymphocyte Count 2.88 X10^3/uL (0.83-4.51); Absolute Neutrophil Count 4.1 X10^3/uL (2.0-7.7); Basophil# 0.06 X10^3/uL; Basophil% 0.7 % (0-1); Eosinophil# 0.58 X10^3/uL; Eosinophils% 7.1 % (0-5); Hematocrit 43.4 % (37-47); Hemoglobin 13.6 g/dL (12.0-15.0); Lymphocyte # 2.88 X10^3/ul (0.83-4.51); Mean Corp Hgb Conc 31.3 g/dL (32-36); Mean Corpuscular Hgb 29.8 pg (27.0-32.0); Mean Platelet Vol. 10.7 fl (6.2-12.0); Monocyte# 0.63 X10^3/uL; Monocyte% 7.7 % (0-10); NRBC Flagged by Analyzer 0 % (0-5); Neutrophil # 4.05 X10^3/uL (2.7-7.7); Neutrophil % 49.3 % (47-70); Platelet Count 313 K/mm3 (150-450); RBC Distribution Width CV 13.9 % (11.6-14.6); RBC Distribution Width SD 48.2 fl (35.1-43.9); Red Blood Count 4.57 M/mm3 (4.2-5.4); White Blood Count 8.2 K/mm3 (4.4-11.0)
[2024-04-18 15:46] LABS: Color, Urine Yellow (Yellow); Glucose, Dipstick Normal (Normal); Ketone-Dipstick 5 mg/dl (Negative); Leukocyte Esterase-Dipstick 500 /ul (Negative); Nitrite-Dipstick Negative (Negative); Occult Blood-Urine 25 /ul (Negative); Protein-Dipstick 30 mg/dl (Negative); Urine Bilirubin Dipstick Negative (Negative); Urine Clarity Sl. Cloudy (Clear); Urine Urobilinogen 1 mg/dl (Normal)
[2024-04-18 15:53] LABS: ALB/GLOB Ratio 1.1 RATIO (0.9-2.4); AST(SGOT) 25 U/L (15-37); Alanine Aminotransfer ALT/SGPT 24 U/L (13-56); Albumin, Serum 4.2 g/dL (3.2-5.0); Alkaline Phosphatase 98 U/L (45-117); Anion Gap 5 (5-15); BUN 11 mg/dL (7-18); BUN/Creat Ratio 13.9 RATIO (10-20); Calcium,Total 9.3 mg/dL (8.5-10.1); Chloride 101 mmol/L (98-107); Cholesterol 134 mg/dL (200); Creatinine, Serum 0.79 mg/dL (0.55-1.02); EST Glomerular Filtration Rate 79 mL/min (>60); Est Glom Filt Rate - Afr Amer 95 mL/min (>60); Globulin 3.8 g/dL (2.2-4.2); Glucose 72 mg/dL (74-106); High Density Lipoprotein 60 mg/dL; Potassium 4.5 mmol/L (3.5-5.1); Sodium Level 137 mmol/L (136-145); Triglycerides 124 mg/dL; Very Low Density Lipoprotein 25 mg/dL (5-40)
[2024-04-18 15:56] LABS: Bacteria 1+ /hpf (None Seen); Red Blood Cells-Urine 0-5 SEEN /hpf (0-5); Transitional Epithelial - Ur 0-5 SEEN /hpf (0-5); White Blood Cells 25-50 SEEN /hpf (0-5)
== END | disposition home or self-care (01) ==
LOC: BIMLAB 12:13
PROVIDERS: PCP Internal Medicine; Referring Provider Internal Medicine; Visit Provider Internal Medicine
DX: E78.5 Hyperlipidemia, unspecified (principal); R73.03 Prediabetes; I10 Essential (primary) hypertension; N39.46 Mixed incontinence
CPT/HCPCS: 36415; 80053; 80061; 81001; 85025; 87086; 87088; 87186

== ENCOUNTER → 2024-10-16 | Outpatient (CLI) | payer MEDICARE, SELFPAY ==
[2024-10-16 15:35] LABS: Mucous, Urine 0 SEEN /hpf (<or=2+); Red Blood Cells-Urine 0 SEEN /hpf (0-5); Squamous Epithelial Cells - UA 0 SEEN /hpf (5-10)
[2024-10-16 16:33] LABS: Color, Urine Yellow (Yellow); Glucose, Dipstick Normal (Normal); Ketone-Dipstick Negative (Negative); Leukocyte Esterase-Dipstick Negative /ul (Negative); Nitrite-Dipstick Negative (Negative); Occult Blood-Urine 10 /ul (Negative); Protein-Dipstick 15 mg/dl (Negative); Specific Gravity, Urine 1.010 (1.002-1.030); Urine Bilirubin Dipstick Negative (Negative)
== END | disposition home or self-care (01) ==
LOC: LABSPEC 15:34
PROVIDERS: PCP Internal Medicine; Visit Provider Internal Medicine
DX: R32 Unspecified urinary incontinence (principal)
CPT/HCPCS: 81001; 87086; 87088; 87186